=== PATIENT | female | born 1945 | race Two or more races ===

== ENCOUNTER 2025-03-25 09:58 | Emergency (ER) | payer OTHER, MEDICAID ==
[~2025-03-25] VITALS: Ht 165.1 cm; Wt 78.5 kg
[2025-03-25 10:20] VITALS: O2SAT 96
[2025-03-25 10:32] LABS: PLATELET COUNT (AUTO) 111 K/uL (150-450); RED BLOOD CELL COUNT(AUTO) 4.29 MIL/uL (4.0-5.2); RED CELL DISTRIBUTION WIDTH 15.4 % (11.5-15.0); WHITE BLOOD COUNT (AUTO) 5.3 K/uL (4.3-11.0)
[2025-03-25 10:41] LABS: CALCIUM, SERUM 8.3 mg/dL (8.5-10.1); CREATININE 2.0 mg/dL (0.6-1.3); SODIUM SERUM 139 mmol/L (136-145); UREA NITROGEN, BLOOD 43 mg/dL (7-18)
[2025-03-25 10:59] LABS: ASPARTATE AMINOTRANSFERASE 21 U/L (15-37); NT-PRO BNP 4079 pg/mL (0-125); TOTAL PROTEIN, SERUM 7.9 g/dL (6.4-8.2)
[2025-03-25] MEDS ORDERED: ACETAMINOPHEN ES 500 MG TABLET ONE (13:35)
[2025-03-25] MEDS: ACETAMINOPHEN ES 500 MG TABLET PO ONE (15:00)
[2025-03-25 15:06] VITALS: BP 138/61; TEMP 98; O2SAT 98
== END 2025-03-25 15:06 ==
LOC: ER 10:12
DX: R07.89 Other chest pain (principal); I13.11 Hypertensive heart and chronic kidney disease without heart failure, with stage 5 chronic kidney disease, or end stage renal disease; E11.22 Type 2 diabetes mellitus with diabetic chronic kidney disease; N18.6 End stage renal disease; R06.02 Shortness of breath; Z86.74 Personal history of sudden cardiac arrest; Z88.2 Allergy status to sulfonamides; Z88.6 Allergy status to analgesic agent; Z88.8 Allergy status to other drugs, medicaments and biological substances; Z99.2 Dependence on renal dialysis
CPT/HCPCS: 36415; 71045-TC; 80048-TC; 80076-TC; 83735-TC; 83880; 84484-TC; 85025-TC; 94640-TC; 94799-TC